=== PATIENT | female | born 1990 | race Hispanic/Latino ===

== ENCOUNTER → 2016-04-22 | Outpatient (CLI) | payer OTHER ==
--- NOTE | 2016-04-22 12:30 | Diagnostic Imaging Report ---
Pelvic ultrasound. INDICATION: Irregular menstruation. FINDINGS: There are no previous studies available for comparison. The uterus is nongravid and not enlarged measuring 7.1 x 4.9 x 4.7 cm. The endometrial lining measures 9 mm (normal 5 mm or less). This finding is nonspecific. Correlation with the patient's menstrual cycle will be recommended. There is no focal mass involving the uterus to suggest a fibroid. There are multiple subcentimeter follicles associated with both ovaries. There is no solid pelvic mass or free fluid collection evident. IMPRESSION: There is no evidence for an acute pelvic abnormality. Dictated by: Dictated on workstation # [id number]
== END ==
LOC: RAD 09:54
PROVIDERS: ATTEND Family Medicine
DX: N92.6 Irregular menstruation, unspecified (principal)
CPT/HCPCS: 76830; 76856